=== PATIENT | female | born 2000 | race American Indian/Alaskan Native ===

== ENCOUNTER 2021-05-11 23:24 | Outpatient (CLI) | payer MEDICAID ==
[2021-05-11] MEDS ORDERED: LACTATED RINGERS 500 ML IV ONE (23:42)
[2021-05-11 23:49] VITALS: BP 100/63
== END 2021-05-12 02:01 | disposition home or self-care (01) ==
LOC: TRG 23:24 → APU 23:54 → TRG 05-12 02:01
PROVIDERS: ATTEND Obstetrics & Gynecology
DX: O26.852 Spotting complicating pregnancy, second trimester (principal); Z3A.24 24 weeks gestation of pregnancy
CPT/HCPCS: 59025